=== PATIENT | male | born 1955 | race Caucasian/White ===

== ENCOUNTER → 2017-02-10 | Outpatient (CLI) | payer BC ==
--- NOTE | 2017-02-11 14:38 | US ---
EXAMINATION TYPE: US carotid duplex BILAT DATE OF EXAM: 02/10/2017 COMPARISON: NONE CLINICAL HISTORY: I25.10 Heart Disease I10 Hypertension. Ache bilateral neck. HTN. CABG 2008 EXAM MEASUREMENTS: RIGHT: Peak Systolic Velocity (PSV) cm/sec ----- Right CCA: 111.3 ----- Right ICA: 176.5 ----- Right ECA: 189.6 ICA/CCA ratio: 1.6 RIGHT: End Diastole cm/sec ----- Right CCA: 35.7 ----- Right ICA: 44.5 ----- Right ECA: 43.2 LEFT: Peak Systolic Velocity (PSV) cm/sec ----- Left CCA: 111.9 ----- Left ICA: 111.9 ----- Left ECA: 115.8 ICA/CCA ratio: 1.0 LEFT: End Diastole cm/sec ----- Left CCA: 32.5 ----- Left ICA: 32.5 ----- Left ECA: 27.2 VERTEBRALS (direction of flow): Right Vertebral: Antegrade Left Vertebral: Antegrade Rhythm: Normal Moderate plaque right bifurcation. Mild plaque left bifurcation. Increased velocities right ICA and r ight ECA IMPRESSION: 1. Stenosis of the right internal and external carotid artery corresponding to 50-69%. CTA neck could be considered. 2. No evidence of hemodynamically significant stenosis of the left carotid arterial system. 3. Moderate right and mild left grayscale atherosclerosis of the carotid bulbs.
== END | disposition home or self-care (01) ==
LOC: RADUSWWP 16:03
PROVIDERS: ATTEND Family Medicine
DX: I65.21 Occlusion and stenosis of right carotid artery (principal); I77.89 Other specified disorders of arteries and arterioles; I25.10 Atherosclerotic heart disease of native coronary artery without angina pectoris; E78.2 Mixed hyperlipidemia; I10 Essential (primary) hypertension
CPT/HCPCS: 93880

== ENCOUNTER → 2019-12-09 | Outpatient (CLI) | payer BC ==
[~2019-12-09] MED LIST: REGADENOSON 0.4 MG/5 ML SYRINGE IV ONE
== END | disposition home or self-care (01) ==
LOC: RADNMMAIN 07:48
PROVIDERS: ATTEND Family Medicine
DX: Z53.9 Procedure and treatment not carried out, unspecified reason (principal)

== ENCOUNTER → 2019-12-09 | Outpatient (CLI) | payer BC ==
--- NOTE | 2019-12-09 13:19 | CT ---
EXAMINATION TYPE: CT angio neck DATE OF EXAM: 12/09/2019 COMPARISON: None HISTORY: Carotid stenosis CT DLP: 376.2 mGycm CONTRAST: CTA cervical carotids is performed and with IV Contrast, patient injected with 65 mL of Isovue 370. Contrast CTA of the cervical carotids was performed 3-D reconstruction imaging obtained at a separate workstation. Right carotid system: Mild plaque is seen of the right common carotid artery. There is mild to moder ate plaque also noted at the carotid bulb. Estimated diameter reduction is 50%. ECA is patent. Ri ght vertebral artery appears unremarkable. Left carotid system: Mild plaque is seen of the left common carotid artery. There is mild plaque als o noted at the carotid bulb. Estimated diameter reduction is 40%. ECA is patent. Left vertebral ar chris appears unremarkable. IMPRESSION: 1. Estimated diameter reduction Right ICA 50% 2. Estimated diameter reduction Left ICA 40%
--- NOTE | 2019-12-09 14:17 | EST ---
EXERCISE STRESS AGE: 64 SEX: M HT: 5'9" WT: 216 lbs. PROTOCOL: Lexiscan STAGE: DURATION OF EXERCISE: 6 minutes HEART RATE REST: 77 BLOOD PRESSURE REST: 157/88 MAXIMUM HEART RATE ACHIEVED: 106 MAXIMUM BLOOD PRESSURE: 172/102 85% MPHR: 131 100% MPHR: 154 METS: INDICATIONS: Hypertensive heart disease. CLINICAL INFORMATION: Baseline rhythm is sinus mechanism rate 77, normal axis and intervals. normal echocardiogram. Baseline blood pressure 157/88 mmHg. Patient received an injection of Lexiscan. Electrocardiograph monitoring revealed no evidence of diagnostic ischemic ST deviation. Cardiolite was injected per protocol. CONCLUSION: 1. Nondiagnostic electrocardiograph stress testing. 2. Nuclear images will be reported separately. MMODL / IJN: [id number] /
--- NOTE | 2019-12-09 14:36 | NM ---
EXAMINATION TYPE: NM stress lexiscan cardiolite DATE OF EXAM: 12/09/2019 COMPARISON: Nuclear medicine stress test 06/16/2014 HISTORY: Hypertensive heart disease TECHNIQUE: After the intravenous administration of 9.3 mCi Tc 99m Sestamibi - Cardiolite resting SPE CT images acquired 45 minutes post injection. The patient received 0.4mg Lexiscan, 25.9 mCi Tc 99m Sestamibi - Stress images obtained [address] injection FINDINGS: Review of stress and rest SPECT images demonstrates no distinct perfusion abnormality. Gated analysi s shows normal wall motion with an estimated left ventricular ejection fraction of 59 %. TID 0.94 IMPRESSION: 1. No scintigraphic evidence for reversible ischemia. 2. Ejection fraction 59%.
== END | disposition home or self-care (01) ==
LOC: RADCTMAIN 07:52
PROVIDERS: ATTEND Surgery
DX: I65.23 Occlusion and stenosis of bilateral carotid arteries (principal); I25.10 Atherosclerotic heart disease of native coronary artery without angina pectoris; I11.9 Hypertensive heart disease without heart failure; I25.2 Old myocardial infarction; E78.2 Mixed hyperlipidemia
CPT/HCPCS: 93017; 82565; 84520; 70498; 36415; 78452; A9500; Q9967

== ENCOUNTER → 2022-03-15 | Outpatient (CLI) | payer BC ==
--- NOTE | 2022-03-15 11:10 | CT ---
EXAMINATION TYPE: CT angio neck DATE OF EXAM: 03/15/2022 COMPARISON: 12/09/2019 HISTORY: stenosis, abn US CT DLP: 403 mGycm CONTRAST: CTA cervical carotids is performed and with IV Contrast, patient injected with 65 mL of Isovue 370. Contrast CTA of the cervical carotids was performed 3-D reconstruction imaging obtained at a separate workstation. Right carotid system: Mild plaque is seen of the right common carotid artery. There is moderate plaq ue also noted at the carotid bulb. Estimated diameter reduction is progressed from prior study and i s approximately 90% and is greatest at the take off of the right ICA.. ECA is patent. Right verteb ral artery appears unremarkable. Left carotid system: Mild plaque is seen of the left common carotid artery. There is mild plaque als o noted at the carotid bulb. Estimated diameter reduction is approximately 60%. ECA is patent. Lef t vertebral artery appears unremarkable. IMPRESSION: 1. Estimated diameter reduction Right ICA 90% 2. Estimated diameter reduction Left ICA 60% NASCET criteria was used in interpretation of this exam?
== END | disposition home or self-care (01) ==
LOC: RADCTMAIN 09:41
PROVIDERS: ATTEND Surgery
DX: I65.23 Occlusion and stenosis of bilateral carotid arteries (principal)
CPT/HCPCS: 82565; 84520; 70498; 36415; Q9967

== ENCOUNTER → 2022-09-20 | Outpatient (CLI) | payer BC, MEDICARE ==
[2022-09-20 11:15] LABS: INR 1.1 (<1.2); Partial Thromboplastin Time 24.4 sec (22.0-30.0)
[2022-09-20 15:24] LABS: Appearance,Urine Clear (Clear); Bilirubin,Urine Negative (Negative); Blood,Urine Negative (Negative); Color,Urine Yellow (Yellow); Ketones,Urine Negative (Negative); Nitrite,Urine Negative (Negative); PH, Urine 6.5; Specific Gravity,Urine 1.015 (1.001-1.030); Urobilinogen,Urine 0.2 E.U./DL
[2022-09-21 02:27] LABS: Basophils # (A) 0.06 X 10*3/uL (0.00-0.10); Basophils % (A) 0.9 %; Eosinophils # (A) 0.29 X 10*3/uL (0.04-0.35); Eosinophils % (A) 4.5 %; HCT 45.8 % (39.6-50.0); HGB 14.7 d/dL (12.0-15.0); Lymphocytes # (A) 1.35 X 10*3/uL (0.90-5.00); Lymphocytes % (A) 21.2 %; MCH 29.9 pg (27.0-32.0); MCHC 32.1 d/dL (32.0-37.0); MCV 93.1 FL (80.0-97.0); Mean Platelet Volume 11.3 FL (9.5-12.2); Monocytes # (A) 0.68 X 10*3/uL (0.20-1.00); Monocytes % (A) 10.7 %; NRBC Per 100 WBC 0 X 10*3/uL (0.00-0.01); Neutrophils # (A) 3.99 X 10*3/uL (1.80-7.70); Neutrophils % (A) 62.5 %; Platelet Count 246 X 10*3/uL (140-440); RBC 4.92 X 10*6/uL (4.40-5.60); RDW 13.2 % (11.5-14.5); WBC 6.38 X 10*3/uL (4.50-10.00)
[2022-09-21 03:31] LABS: ALT 21 U/L (10-49); AST 19 U/L (14-35); Albumin 4.3 d/dL (3.8-4.9); Albumin/Globulin Ratio 2.26 Ratio (1.60-3.17); Alkaline Phosphatase 70 U/L (41-126); BUN/Creat Ratio 16.25 Ratio (12.00-20.00); Blood Urea Nitrogen 19.5 mg/dL (9.0-27.0); Calcium 9.5 mg/dL (8.7-10.3); Carbon Dioxide 24.3 mmol/L (21.6-31.8); Chloride 105 mmol/L (96-109); Chol/HDL Ratio 4.57 Ratio; Creatine Kinase 109 U/L (35-257); Globulin 1.9 d/dL (1.6-3.3); Glucose 100 mg/dL (70-110); LDL Cholesterol,Calculated 123.2 mg/dL (0.0-131.0); Potassium 4.8 mmol/L (3.5-5.5); Sodium 141 mmol/L (135-145); Total Bilirubin 0.3 mg/dL (0.3-1.2); Total Protein 6.2 d/dL (6.2-8.2)
== END | disposition home or self-care (01) ==
LOC: LABWHC1 09:51
PROVIDERS: ATTEND Orthopaedic Surgery Sports Medicine
DX: Z01.812 Encounter for preprocedural laboratory examination (principal); Z12.5 Encounter for screening for malignant neoplasm of prostate; I10 Essential (primary) hypertension; M17.12 Unilateral primary osteoarthritis, left knee; E78.2 Mixed hyperlipidemia
CPT/HCPCS: 36415; 80053; 80061; 81003; 82306; 82550; 84443; 85025; 85610; 85730; 87070

== ENCOUNTER 2022-10-06 10:49 | Day surgery (SDC) | payer BC, MEDICARE ==
[~2022-10-06 10:49] MED LIST changes: +ACETAMINOPHEN TAB 500 MG TAB PO PRN; +DEXAMETHASONE SOD PHOSPHATE 4 MG/ML 1 ML VIAL IV ONE; +GABAPENTIN 300 MG CAP PO PRN; +HYDROmorphone 0.5 MG/0.5 ML SYRINGE IVP PRN; +MELOXICAM 7.5 MG TAB PO PRN; +ONDANSETRON 4 MG/2 ML VIAL IVP ONE; +ONDANSETRON 4 MG/2 ML VIAL IVP PRN; -REGADENOSON 0.4 MG/5 ML SYRINGE IV ONE; +TRANEXAMIC 1,000 MG/100ML-NACL 1,000 MG in SALINE 1 100ML.BAG IVPB PRN
[2022-10-06] MEDS ORDERED: LACTATED RINGERS 1,000 ML IV ONE ×2 (12:30→16:11)
[2022-10-06] MEDS ORDERED: ONDANSETRON 4 MG/2 ML VIAL IVP ONE (13:13)
[2022-10-06] MEDS ORDERED: MIDAZOLAM 2 MG/2 ML VIAL IVP ONE (13:15)
[2022-10-06] MEDS ORDERED: bisacodyL 10 MG SUPP RECTAL PRN (13:50)
[2022-10-06] MEDS ORDERED: ONDANSETRON 4 MG/2 ML VIAL IVP PRN (13:50)
[2022-10-06] MEDS ORDERED: HYDROmorphone 0.5 MG/0.5 ML SYRINGE IVP PRN ×3 (13:50)
[2022-10-06] MEDS ORDERED: NA PHOS,M-B/NA PHOS,DI-BA 133 ML ENEMA RECTAL PRN (13:50)
[2022-10-06] MEDS ORDERED: ACETAMINOPHEN TAB 325 MG TAB PO PRN (13:50)
[2022-10-06] MEDS ORDERED: NALOXONE 0.4 MG/ML 1 ML VIAL IV PRN (13:50)
[2022-10-06] MEDS ORDERED: traMADol 50 MG TAB PO PRN (13:50)
[2022-10-06] MEDS ORDERED: MAGNESIUM HYDROXIDE 2,400 MG/30 ML CUP PO PRN (13:50)
[2022-10-06] MEDS ORDERED: HYDROcodone/APAP 7.5-325MG 1 EACH TAB PO PRN (13:54)
[2022-10-06] MEDS ORDERED: DEXAMETHASONE SOD PHOSPHATE 4 MG/ML 1 ML VIAL ONE (14:19)
[2022-10-06] MEDS ORDERED: ROPIVACAINE 5 MG/ML 30 ML VIAL ONE (14:19)
[2022-10-06] MEDS ORDERED: fentaNYL (PF) 50 MCG/ML 2 ML AMP ONE (14:19)
[2022-10-06] MEDS ORDERED: ePHEDrine 50 MG/ML 1 ML VIAL ONE (14:19)
[2022-10-06] MEDS ORDERED: TRANEXAMIC 1,000 MG/100ML-NACL PREMIX BAG ONE (14:19)
[2022-10-06] MEDS ORDERED: MIDAZOLAM 2 MG/2 ML VIAL ONE (14:19)
[2022-10-06] MEDS ORDERED: PROPOFOL 10 MG/ML 20 ML VIAL IV ONE (14:19)
[2022-10-06] MEDS: LACTATED RINGERS 1,000 ML IV SCH ×2 (17:01→18:47)
--- NOTE | 2022-10-06 17:34 | XR ---
PROCEDURE: XR knee limited LT - 2V DATE AND TIME: 10/06/2022 5:04 PM CLINICAL INDICATION: PHH; Evaluation for Postop abnormality and alignment TECHNIQUE: Department protocol COMPARISON: None FINDINGS: The TKR components appear in anatomic alignment. There is no fracture or malalignment. The soft tissues are unremarkable. No unexpected postoperative findings. IMPRESSION: Postoperative radiograph.
[2022-10-06] MEDS ORDERED: ROPIVACAINE 1,100 MG, SODIUM CHLORIDE 0.9% 500 ML 330 ML, EMPTY PAIN BALL 1 EACH MISCELLANE PRN ×2 (18:13)
--- NOTE | 2022-10-06 19:25 | P.ANPRN ---
Procedure Note - Anesthesia - Nerve Block Performed Left Adductor Canal Infusion Time Out Performed: Yes Date of Procedure: 10/06/22 Procedure Start Time: : Procedure Stop Time: Location of Patient: PreOp Indication: Acute Post-Operative Pain, Requested by Surgeon Sedation Type: Sedate with meaningful contact maintained Preparation: Sterile Prep, Sterile Dressing Position: Supine Catheter: Indwelling Needle Types: Pajunk Needle Gauge: 21 Ultrasound used to visualize needle placement: Yes Ultrasound used to observe medication spread: Yes Blood Aspirated: No Pain Paresthesia on Injection Noted: No Resistance on Injection: Normal Image Stored and Saved: Yes Events: Uneventful and Well Tolerated (Ropivacaine 0.5% 20 mL plus dexamethasone 4 mg)
--- NOTE | 2022-10-06 19:26 | P.ANPRN ---
Procedure Note - Anesthesia - Nerve Block Performed Left iPack Single Time Out Performed: Yes Date of Procedure: 10/06/22 Procedure Start Time: Procedure Stop Time: Location of Patient: PreOp Indication: Acute Post-Operative Pain, Requested by Surgeon Sedation Type: Sedate with meaningful contact maintained Preparation: Sterile Prep Position: Supine Needle Types: Pajunk Needle Gauge: 21 Ultrasound used to visualize needle placement: Yes Ultrasound used to observe medication spread: Yes Blood Aspirated: No Pain Paresthesia on Injection Noted: No Resistance on Injection: Normal Image Stored and Saved: Yes Events: Uneventful and Well Tolerated (Ropivacaine 0.5% 25cc plus dexamethasone 4 mg)
--- NOTE | 2022-10-06 19:29 | OP ---
OPERATIVE REPORT DATE OF SERVICE : 10/06/2022 FIELD SERVICE SUPERVISOR: Daryl Fisher PA-C PREOPERATIVE DIAGNOSIS: Left knee osteoarthrosis. POSTOPERATIVE DIAGNOSIS: Left knee osteoarthrosis. PROCEDURE PERFORMED: Left total knee arthroplasty. ANESTHESIA: Spinal with sedation. ESTIMATED BLOOD LOSS: 100 mL. TOURNIQUET TIME: 56 minutes at 250 mmHg. COMPLICATIONS: None apparent. DRAINS: None. DISPOSITION: Postanesthesia care unit. INDICATIONS FOR PROCEDURE: Mikel is a very pleasant 67-year-old male with longstanding history of left knee pain. History and physical examination are consistent with advanced left knee osteoarthrosis. He has been through significant nonoperative management up to this point. Further treatment options were discussed, and he decided to go forward with left total knee arthroplasty. Risks of procedure were discussed with him in detail. These risks included, but were not limited to, risk of infection, nerve damage, bleeding, pain, and a small risk of deep vein thrombosis which could lead to fatal pulmonary embolism. There is also a small risk of loosening of the implant which could require revision operation. The patient understands these risks. All of his questions were answered to his satisfaction. An appropriate informed consent was obtained. DESCRIPTION OF THE PROCEDURE: The patient was identified in the preoperative holding area. Surgical site was marked by both the patient and myself. He was given 2 g of Ancef IV for prophylactic purposes. He was then transported to the operative suite. He was placed supine on the operating room table. A spinal anesthetic was then administered and dosed per the Anesthesia Department without apparent complication. Examination under anesthesia was then performed. He was 2 to 3 degrees shy of full extension. He had 100 degrees of flexion. Medial collateral ligament, lateral collateral ligament, and posterior cruciate ligaments were stable. Tourniquet was then placed high in the left upper thigh, well-padded in preparation for surgery. The patient's left lower extremity was then prepped and draped in usual sterile fashion. Standard surgical pause was undertaken to ensure that we were operating the correct site and that appropriate preoperative antibiotics were given. All staff in the room were in agreement and we proceeded. The outlines of the patella were marked with a surgical pen. A planned 12 cm vertical incision centered over the patella was marked with a surgical pen. The leg was then exsanguinated with Esmarch dressing. The knee was then flexed and tourniquet was inflated to 250 mmHg. Total tourniquet time for the procedure was 56 minutes. Incision was then made with a 10-blade scalpel. Dissection was carried down sharply overlying fascia. Great care was taken to minimize the skin flaps. The knee was then exposed using a standard medial parapatellar approach. A small cuff of quadriceps tendon was then left for suturing. He was in a quite bit of varus preoperatively. A standard medial release was then made. Superficial medial collateral ligament was dissected off the bone around to the posterior aspect of the proximal tibia. The medial meniscus was then excised as well. Lateral meniscus was also released anteriorly. Leg was then externally rotated. The patella was everted. The knee was flexed. Retractors were then placed to protect the collateral ligaments. I then proceeded to remove the infrapatellar fat pad. This was excised sharply tangentially with fibers of the patellar tendon. I then proceeded to remove the peripheral osteophytes. This was done with a rongeur. I then proceeded with the distal femoral resection. He did have near full extension. A planned 9 mm resection was then done. The femoral canal was entered in the midline of the femur approximately 10 mm anterior to the origin of the posterior cruciate ligament. The rohan was then advanced down the center of the femur and placed intramedullary. Based on the preoperative radiographs, the angle between the anatomic and mechanical axis of the femur was approximately 4 to 5 degrees. The valgus angle of the distal femoral cutting guide was then set at 4 degrees for the left knee. Distal femoral cutting guide was then advanced over the intramedullary rohan. This was seated firmly against the femur. I then, as mentioned, planned to take 9 mm off the distal femur. The cutting block was then secured down to the femur with pins. Jig was then removed. Distal femoral cut was made through the slot of the block. The pins were then removed. The distal femoral cutting block was removed. The accuracy of the distal femoral cuts was checked with 2 flat bars. I then proceeded with femoral sizing. Posterior referencing sizing guide was held firmly against the resected distal surface of the femur. The posterior condyles were resting on the posterior plane of the guide. The sizing stylus was then placed on the anterior femur. The size was measured as a size 10. I then assessed for femoral rotation. The plan is for 3 degrees of external rotation. Three degrees of external rotation was placed onto the jig. These holes were then marked. I then confirmed the rotation by 3 separate methods. This was done using the epicondylar axis as well as [place]itesides line and posterior referencing. It was deemed that the external rotation was proper. I then moved forward with placing of the femoral cutting block. This was placed over the previously placed pin holes. The Dajuan wing was then placed on the anterior slots to ensure that we would not notch the anterior femur with the anterior femoral cut. I then proceeded with the anterior femoral cut. This was flushed with the anterior cortex of the femur. The posterior cuts were then made followed by the anterior chamfer cut and the posterior chamfer cut. The cutting block was then removed. Throughout the resection, the collateral ligaments were protected with retractors. I then placed a trial size 10 femur. It was slightly wide but the narrow fit very nicely, and it fit flush with the distal end of the femur. The drill hole was then made. I then proceeded with tibial cut, planned for cruciate-retaining knee. The guide was placed and set for varus valgus and for slope. I set for approximately 2 mm resection from the medial tibial plateau which was the lower side. I was happy with the alignment and the amount of resection. The cutting block was then pinned to the proximal tibia. The alignment rohan was removed. The proximal tibia was resected with a reciprocating saw. Again, this was done with retractors protecting the collateral ligaments as well as the posterior cruciate ligament. I then proceeded to evaluate the flexion and extension gaps. A 10 mm block was then placed. The flexion and extension gaps were equal. I then proceeded with resection of posterior osteophytes. He had fairly extensive posterior osteophytes. This was done using curved osteotome. This resected the posterior osteophytes and posterior capsular stripping was done off the posterior aspect of the femur at this time. The osteophytes were then removed. I then proceeded with resection of the patella. The thickness of the patella was measured using the caliper. The thickness was 24 mm. Thickness of the anticipated patellar dome was taken into account. Resection was then performed and confirmed to be equal in 4 quadrants using a caliper. Approximately 14 mm of bone remained after resection. A 32 x 8.5 mm standard patellar trial was then placed. The holes were drilled and the trial was then placed. I then proceeded with sizing tibial plate. A size F tibial plate fit very nicely. I then placed the trial femur of the tibial tray and the patellar button. A 10 mm trial tibial insert was also placed. The components fit very nicely. He had full extension and flexion. The extension and flexion gaps were equal and stable to both varus and valgus stress. The patella tracked appropriately. The tibial tray rotation was then marked a Bovie. This was externally rotated properly. I then proceeded with tibial preparation. I first drilled the femoral holes and removed the femoral component. The tibial tray was then set for proper external rotation as well as medial lateral placement onto the tibia. It was then pinned into place. I then proceeded with punching the keel. I then decided to proceed with cementing of all our components. The knee was thoroughly irrigated with sterile saline solution via pulse lavage. The lateral genicular artery was identified and cauterized. All blood was removed from the bone of the tibia, femur, and patella with pulsed lavage. I then proceeded with cementing. Two packs of antibiotic bone cement prepared on the back table by the surgical scrub tech. I then proceeded with cementing of the tibia first. The cement was impacted into the keel as well as deeply seated into the bone. A second coat of cement was then placed. The tibia was then impacted into place. Excess cement was removed with [place]'s and Joker's. I then proceeded with cementing the femoral component. The femoral component was also cemented using standard technique. Excess cement was removed. A 10-mm trial insert was then placed in the knee. It was brought into full extension with a constant axial load placed until the cement had hardened. The patellar component was then cemented. This was held firmly with a compressive device until the cement had dried. When the cement had dried, the knee was taken out of extension. All excess cement was removed from around the prosthesis. I then trialed the knee with 10 mm insert. Flexion extension gaps were appropriate. The knee was stable. It came to full extension. I decided to go forward with a 10-mm Medial Congruent cross-linked cruciate- retaining tibial insert. Polyethylene was then placed on tibial tray and locked in place. The knee was then reduced. Knee was again further irrigated with sterile saline solution with antibiotic added. The tourniquet was then deflated. Total tourniquet time for the procedure was 56 minutes at 250 mmHg. Final components were Rudy Persona size 10 narrow cruciate- retaining femoral component, size F tibial tray, a 10 mm medial congruent cruciate- retaining polyethylene insert, and a 32 x 8.5 mm patella. I then proceeded with closure. Again, the knee was thoroughly irrigated. The quadriceps tendon and the medial retinaculum were reapproximated with #2 Ethibond suture. The extensor mechanism was then closed with a running #2 Quill suture. Subcutaneous tissues were closed with 2-0 Vicryl interrupted suture. The skin was closed with a running 3-0 Quill suture. Dermabond was then applied to the incision. Sterile compressive dressing was then applied. All sponge and needle counts were deemed correct prior to closure. The patient tolerated procedure without apparent complication. He was transferred to recovery room in stable condition. MMODL / IJN: [id number] /
[2022-10-06 20:09] VITALS: RESP 16
[2022-10-06] MEDS: METOPROLOL TARTRATE 50 MG TAB PO SCH (21:00)
[2022-10-06] MEDS: lisinopriL 20 MG TAB PO SCH (21:00)
[2022-10-06] MEDS ORDERED: SENNOSIDES-DOCUSATE SODIUM 1 EACH TAB PO SCH (21:00)
[2022-10-06] MEDS: HYDROcodone/APAP 7.5-325MG 1 EACH TAB PO PRN (21:10)
[2022-10-07] MEDS: METOPROLOL TARTRATE 50 MG TAB PO SCH (00:22)
[2022-10-07] MEDS: lisinopriL 20 MG TAB PO SCH (00:22)
[2022-10-07] MEDS: LACTATED RINGERS 1,000 ML IV SCH ×3 (00:23→07:19)
--- NOTE | 2022-10-07 03:35 | P.CONS ---
History of Present Illness - Reason for Consult Consult date: 10/06/22 hypertension - Chief Complaint left knee surgery - History of Present Illness 67 year old male with hypertension , CAD s/p CABG coming in for scheduled left total knee arthroplasty , tolerated procedure well, no observed immediate post op complications. patient tolerated food post op, and walked with assistance , reports that pain is well controlled blood pressure has been elevated, he claims to have taken his morning pills. denies any headache, chest pain or trouble breathing, denies any focal neuro deficits denies smoking, drugs or alcohol review of systems Pertinent positives as noted in HPI. All other systems were reviewed and are negative Constitutional: No acute distress, conversant, pleasant Eyes: Anicteric sclerae, moist conjunctiva, Pupils equal round reactive to light ENMT: NC/AT Oropharynx clear, no erythema, or exudates Neck: Supple, no masses, or JVD No carotid bruits No thyromegaly Lungs: Clear to auscultation Clear to percussion Normal respiratory effort, no accessory muscle use Cardiovascular: Heart regular in rate and rhythm, No murmurs, gallops, or rubs chronic edema left lower extremity Abdominal: Soft Nontender, no guarding, rebound or rigidity Abdomen moving with respiration Normoactive bowel sounds No hepatomegaly, No splenomegaly No palpable mass No abdominal wall hernia noted Skin: Normal temperature, tone, texture, turgor No induration No subcutaneous nodules No rash, lesions No ulcers Extremities: No digital cyanosis No clubbing Pedal pulses intact and symmetrical Radial pulses intact and symmetrical No calf tenderness Psychiatric: Alert and oriented to person, place and time Appropriate affect fair judgement Neuro Muscles Strength 5/5 in all 4 extremities , limited exam over left lower extremity due to pain from surgery Sensation to light touch grossly present throughout Cranial nerves II-XII grossly intact Lymphatics: no palpable cervical or supraclavicular lymph nodes Past Medical History Past Medical History: Coronary Artery Disease (CAD), Cancer, Hyperlipidemia, Hypertension, Myocardial Infarction ([place]), Osteoarthritis (OA) Additional Past Medical History / Comment(s): skin CA face-removed Last Myocardial Infarction Date:: 2008 History of Any Multi-Drug Resistant Organisms: None Reported Past Surgical History: Cholecystectomy, Coronary Bypass/CABG, Heart Catheterization, Tonsillectomy Additional Past Surgical History / Comment(s): CABG-4 vessel 2008, trans carotid artery stent right side 05/19 Past Anesthesia/Blood Transfusion Reactions: No Reported Reaction Additional Past Anesthesia/Blood Transfusion Reaction / Comm: no problems with prior blood transfusion Past Psychological History: No Psychological Hx Reported Smoking Status: Never smoker Past Alcohol Use History: None Reported Past Drug Use History: None Reported - Past Family History Mother Family Medical History: No Reported History Additional Family Medical History / Comment(s): heart disease runs in the family Medications and Allergies Home Medications Medication Instructions Recorded Confirmed Type Clopidogrel [Plavix] 75 mg PO DAILY 04/27/22 10/06/22 History Krill/Om-3/Dha/Epa/Phospho/Ast 1 each PO DAILY 04/27/22 10/06/22 History [Krill Oil 500 mg Softgel] Metoprolol Tartrate [Lopressor] 50 mg PO BID@0100,1700 04/27/22 10/06/22 History Multivit-Mins/Iron/Folic/Lycop 1 each PO DAILY 04/27/22 10/06/22 History [Centrum Men's Tablet] Niacin 500 mg PO Q2D 04/27/22 10/06/22 History Pravastatin Sodium [Pravachol] 40 mg PO DAILY 04/27/22 10/06/22 History lisinopriL [Prinivil] 20 mg PO BID@0100,1700 04/27/22 10/06/22 History Aspirin 81 mg PO DAILY tab 04/30/22 10/06/22 Rx Cholecalciferol [Vitamin D3 (25 25 mcg PO Q2D 10/04/22 10/06/22 History Mcg = 1000 Iu)] Allergies Allergy/AdvReac Type Severity Reaction Status Date / Time No Known Allergies Allergy Verified 10/06/22 12:37 Physical Exam Vitals: Vital Signs Temp Pulse Resp BP Pulse Ox 10/07/22 02:00 98.5 F 95 16 156/89 93 L 10/07/22 00:25 161/94 10/06/22 22:50 189/109 10/06/22 20:00 97.5 F L 74 16 183/111 95 10/06/22 18:06 98.0 F 74 17 161/84 97 10/06/22 17:30 55 L 16 135/77 97 10/06/22 17:15 58 L 16 146/85 96 10/06/22 17:00 59 L 16 133/77 96 10/06/22 16:45 61 16 133/71 96 10/06/22 16:28 97.4 F L 62 14 116/63 94 L 10/06/22 13:28 59 L 17 167/87 96 10/06/22 12:30 97.5 F L 57 L 15 187/93 94 L Intake and Output 10/06/22 10/06/22 10/07/22 14:59 22:59 06:59 Intake Total 1050 200 Output Total 100 Balance 1050 100 Intake: IV 1050 100 Intake, IV Titration 100 Amount Lactated Ringers 1,000 ml 100 @ 100 mls/hr IV .Q10H [facility] Rx#:[id number] Output: Estimated Blood Loss 100 Other: Voiding Method Toilet Weight 104.7 kg 104.7 kg Assessment and Plan Assessment: hypertensive urgency resume home blood pressure medications lisinopril and metoprolol monitor vital signs blood pressure improved after patient received his usual evening dose of BP meds s/p left total knee arthroplasty , post op MX per orthopedic for pain control and DVT PPX CAD s/p CABG resume plavix resume statin follow up CBC and BMP in AM thank you for this consultation , we will continue to follow up along with you
[2022-10-07 07:26] VITALS: BP 152/94; PULSE 60; TEMP 97.7
[2022-10-07] MEDS: HYDROcodone/APAP 7.5-325MG 1 EACH TAB PO PRN ×2 (08:20→12:32)
[2022-10-07] MEDS ORDERED: CLOPIDOGREL 75 MG TAB PO SCH (09:00)
[2022-10-07] MEDS ORDERED: PRAVASTATIN SODIUM 40 MG TAB PO SCH (09:00)
--- NOTE | 2022-10-07 09:15 | P.PN ---
Subjective Progress Note Date: 10/07/22 No new complaints today. Blood pressures have improved. Gen: awake, alert HEENT: normocephalic, atraumatic, good hearing acuity, moist mucous membranes Resp: good air exchange, breathing comfortably with no accessory muscle use CVS: good distal perfusion x 4, GI: soft, NTTP, ND : no SPT, no CVAT, lizarraga catheter not present MSK: no pitting edema, no clubbing Neuro: non-focal, moving all extremities Psych: cooperative, euthymic mood Assessment/plan: hypertensive urgency resume home blood pressure medications lisinopril and metoprolol monitor vital signs blood pressure improved after patient received his usual evening dose of BP meds No changes of blood pressure medication management on discharge s/p left total knee arthroplasty , post op MX per orthopedic for pain control and DVT PPX CAD s/p CABG resume plavix , resume aspirin resume statin follow up CBC and BMP thank you for this consultation , we will continue to follow up along with you , patient is medically stable for discharge, medication reconciliation completed Objective - Vital Signs Vital signs: Vital Signs Temp 97.7 F 10/07/22 07:10 Pulse 60 10/07/22 07:10 Resp 16 10/07/22 07:10 BP 152/94 10/07/22 07:10 Pulse Ox 95 10/07/22 07:10 FiO2 Intake & Output 10/06/22 10/07/22 10/07/22 18:59 06:59 18:59 Intake Total 1250 Output Total 100 Balance 1150 Weight 104.7 kg Intake: IV 1150 Intake, IV Titration 100 Amount Lactated Ringers 1,000 ml 100 @ 100 mls/hr IV .Q10H ROGER Rx#:[id number] Output: Estimated Blood Loss 100 Other: Voiding Method Toilet # Voids 2
[2022-10-07 11:01] LABS: Basophils # (A) 0.02 X 10*3/uL (0.00-0.10); Basophils % (A) 0.2 %; Eosinophils # (A) 0 X 10*3/uL (0.04-0.35); Eosinophils % (A) 0 %; HCT 37.7 % (39.6-50.0); HGB 12.4 d/dL (12.0-15.0); Lymphocytes # (A) 0.71 X 10*3/uL (0.90-5.00); Lymphocytes % (A) 5.7 %; MCHC 32.9 d/dL (32.0-37.0); MCV 91.1 FL (80.0-97.0); Monocytes # (A) 0.96 X 10*3/uL (0.20-1.00); Monocytes % (A) 7.7 %; NRBC Per 100 WBC 0 X 10*3/uL (0.00-0.01); Platelet Count 220 X 10*3/uL (140-440); RBC 4.14 X 10*6/uL (4.40-5.60); RDW 12.6 % (11.5-14.5); WBC 12.54 X 10*3/uL (4.50-10.00)
--- NOTE | 2022-10-07 11:53 | P.PN ---
Progress Note - Text The patient is status post left adductor canal catheter placement. The catheter was placed for postoperative pain control, status post total left knee arthroplasty. Ropivacaine 0.2% is infusing at 8 mLs per hour. The patient has no complaints of left lower extremity numbness or weakness. There is some posterior knee stiffness. Patient's VAS score is 0 -10. Assessment: Patient's adductor canal catheter is in place and working appropriately. Plan: continue infusion and adjust it as needed.
[2022-10-07] MEDS ORDERED: MULTIVITAMINS, THERA 1 EACH TAB PO SCH (12:00)
--- NOTE | 2022-10-07 13:55 | P.DS ---
Providers Expected date of discharge: 10/07/22 Attending physician: Kiran Max Consults: 10/06/22 13:50 Consult Physician Routine Consulting Provider: Pattie Orourke Consult Reason/Comments: post op medical management Do you want consulting provider notified?: Yes Primary care physician: Bartolo Mckenzie - Discharge Diagnosis(es) (1) Total knee replacement status Patient was admitted to the OR on 09/06/22 to undergo a left total knee arthroplasty. He had failed conservative measures as an outpatient and desired to proceed with elective surgery after given informed consent. He underwent the above procedure which he tolerated well without complication. Postoperative hospital course has remained without complication. On day of discharge he is afebrile, vital signs stable, labs within acceptable ranges, tolerating by mouth meds and diet, voiding without difficulty, positive flatus, denies abdominal pain or calf pain, pain is controlled on oral pain medication and has no new complaints. Wound is benign, neurovascular status is intact, calf is soft and nontender, abdomen soft and nontender. Review of systems is negative for numbness, tingling, fever, chills, chest pain, shortness of breath, nausea, vomiting, dizziness, headaches, slurred speech or other. Current Visit: Yes Status: Acute Priority: Medium Procedures: Left TKA Patient Condition at Discharge: Good Plan - Discharge Summary Discharge Rx Participant: Yes New Discharge Prescriptions: New Acetaminophen Tab [Tylenol] 650 mg PO Q4HR PRN tab PRN Reason: Pain Scale 1 To 5 HYDROcodone/APAP 7.5-325MG [Orla 7.5-325] 1 - 2 tab PO Q6HR PRN #42 tab PRN Reason: Pain Docusate [Colace] 100 mg PO BID #60 capsule Ondansetron [Zofran] 4 mg PO Q8HR PRN #21 tab PRN Reason: Nausea Continue Multivit-Mins/Iron/Folic/Lycop [Centrum Men's Tablet] 1 each PO DAILY Krill/Om-3/Dha/Epa/Phospho/Ast [Krill Oil 500 mg Softgel] 1 each PO DAILY lisinopriL [Prinivil] 20 mg PO BID@0100,1700 Metoprolol Tartrate [Lopressor] 50 mg PO BID@0100,1700 Cholecalciferol [Vitamin D3 (25 Mcg = 1000 Iu)] 25 mcg PO Q2D Pravastatin Sodium [Pravachol] 40 mg PO DAILY Clopidogrel [Plavix] 75 mg PO DAILY Niacin 500 mg PO Q2D Aspirin 81 mg PO DAILY tab Discharge Medication List Clopidogrel [Plavix] 75 mg PO DAILY 04/27/22 [History] Krill/Om-3/Dha/Epa/Phospho/Ast [Krill Oil 500 mg Softgel] 1 each PO DAILY 04/27/22 [History] Metoprolol Tartrate [Lopressor] 50 mg PO BID@0100,1700 04/27/22 [History] Multivit-Mins/Iron/Folic/Lycop [Centrum Men's Tablet] 1 each PO DAILY 04/27/22 [History] Niacin 500 mg PO Q2D 04/27/22 [History] Pravastatin Sodium [Pravachol] 40 mg PO DAILY 04/27/22 [History] lisinopriL [Prinivil] 20 mg PO BID@0100,1700 04/27/22 [History] Aspirin 81 mg PO DAILY tab 04/30/22 [Rx] Cholecalciferol [Vitamin D3 (25 Mcg = 1000 Iu)] 25 mcg PO Q2D 10/04/22 [History] Acetaminophen Tab [Tylenol] 650 mg PO Q4HR PRN tab 10/07/22 [Rx] Docusate [Colace] 100 mg PO BID #60 capsule 10/07/22 [Rx] HYDROcodone/APAP 7.5-325MG [Orla 7.5-325] 1 - 2 tab PO Q6HR PRN #42 tab 10/07/22 [Rx] Ondansetron [Zofran] 4 mg PO Q8HR PRN #21 tab 10/07/22 [Rx] Follow up Appointment(s)/Referral(s): [facility] [NON-STAFF] - As Needed (matthew) [facility], [NON-STAFF] - As Needed Kiran Max MD [STAFF PHYSICIAN] - 10 Days Patient Instructions/Handouts: *Surgery [facility] - On-Q Pain Pump Discharge Instructions, Knee Replacement (DC) Discharge Disposition: HOME WITH HOME HEALTH SERVICES
== END 2022-10-07 15:37 | disposition home health service (06) ==
LOC: OR 10:49 → 4SSUR 13:28 → OR 10-07 15:37
PROVIDERS: ATTEND Orthopaedic Surgery Sports Medicine
DX: M17.12 Unilateral primary osteoarthritis, left knee (principal); G89.18 Other acute postprocedural pain; I25.10 Atherosclerotic heart disease of native coronary artery without angina pectoris; Z95.1 Presence of aortocoronary bypass graft; I65.21 Occlusion and stenosis of right carotid artery; I11.9 Hypertensive heart disease without heart failure; E78.5 Hyperlipidemia, unspecified; I25.2 Old myocardial infarction; Z79.02 Long term (current) use of antithrombotics/antiplatelets; Z79.82 Long term (current) use of aspirin; Z79.899 Other long term (current) drug therapy
CPT/HCPCS: 27447; 97162; 64999; 64448; 85025; 73560; C1776; C1713; C1751; J2250; J1100; J0690 ×2; J2405; J3010; J2795; J2704